=== PATIENT | female | born 1995 ===

== ENCOUNTER 2021-04-03 00:25 | Emergency (ER) | payer MEDICAID ==
[~2021-04-03] VITALS: Ht 170.2 cm; Wt 68.9 kg
[2021-04-03 00:25] VITALS: BP 114/58
== END 2021-04-03 00:57 | disposition left against medical advice (07) ==
LOC: ER 00:25
DX: R51.9 Headache, unspecified (principal); Z53.21 Procedure and treatment not carried out due to patient leaving prior to being seen by health care provider